=== PATIENT | female | born 1995 | race Caucasian/White ===

== ENCOUNTER 2024-08-29 17:30 | Emergency (ER) | payer MEDICAID, SELFPAY ==
[2024-08-29 17:51] VITALS: BP 137/86; PULSE 94; RESP 18; TEMP 36.7; O2SAT 100; BMI 20.7
--- NOTE | 2024-08-29 18:07 | PD.EDRME ---
Rapid Medical Screening Exam RME Arrival date/time: 08/29/24 17:30 28-year-old female presents to the emergency department complaints of back pain and discolored urine Chief Complaint: Urogenital-Female Time Seen by Provider: 08/29/24 17:32 Vital signs: Vital Signs Temperature 98.0 F 08/29/24 17:51 Pulse Rate 94 08/29/24 17:51 Respiratory Rate 18 08/29/24 17:51 Blood Pressure 137/86 H 08/29/24 17:51 Pulse Oximetry (%) 100 08/29/24 17:51 Oxygen Delivery Method Room Air 08/29/24 17:51
[2024-08-29 18:54] LABS: Collection Type, Urine Clean Catch
[2024-08-29 19:07] LABS: Basophils % (Auto) 0 % (0-2.5); Eosinophils # (Auto) 0.3 Thou/mm3 (0.0-0.5); Eosinophils % (Auto) 3 % (0-10); Hematocrit 44.4 % (36.0-46.0); Hemoglobin 14.8 g/dL (12.0-16.0); Immature Granulocytes % (Auto) 0 % (0-0); Immature Granulocytes Auto 0.03 Thou/mm3 (0.00-0.00); Lymphocytes # (Auto) 3.4 Thou/mm3 (1.0-4.8); Lymphocytes % (Auto) 30 % (10-50); Mean Corpuscular HGB Conc 33.3 g/dl (31.0-37.0); Mean Corpuscular Hemoglobin 30.7 pg (25.0-35.0); Mean Corpuscular Volume 92 fL (80-100); Monocytes # (Auto) 0.8 Thou/mm3 (0.0-0.8); Monocytes % (Auto) 7 % (0-12); Neutrophils # (Auto) 6.7 Thou/mm3 (1.8-7.7); Neutrophils % (Auto) 60 % (37-80); Nucleated Red Blood Cell % 0 /100 WBC (0); Platelet Count 337 Thou/mm3 (140-440); RDW Standard Deviation 43.6 fL (36.4-46.3); Red Blood Count 4.82 Miln/mm3 (4.00-5.20); White Blood Count 11.2 Thou/mm3 (3.6-11.0)
[2024-08-29 19:21] LABS: Alanine Aminotransferase 27 U/L (10-49); Albumin/Globulin Ratio 1.9 (1.2-2.2); Alkaline Phosphatase 83 U/L (46-116); Anion Gap 8 (7-16); Aspartate Amino Transferase 25 U/L (0-34); BUN/Creatinine Ratio 9 Ratio (12-20); Bilirubin,Total 0.4 mg/dL (0.3-1.2); Blood Urea Nitrogen 8 mg/dL (9-23); Calcium 10.4 mg/dL (8.3-10.6); Calcium (Corrected) 10.4 mg/dL (8.5-10.1); Carbon Dioxide 28.2 mMol/L (20.0-31.0); Chloride 102 mMol/L (98-107); Creatinine (Component) 0.9 mg/dL (0.6-1.3); Estimated Creatinine Clearance 79.6 mL/min (>60); Globulin 2.6 gm/dL (2.3-3.5); Glucose 92 mg/dL (74-106); Lipase 89 U/L (12-53); Osmolality,Calculated 273 (275-295); Potassium 4.2 mMol/L (3.4-5.1); Sodium 138 mMol/L (136-145); Total Protein 7.6 gm/dL (5.7-8.2); eGFR > 60 See Note
[2024-08-29 19:23] LABS: Amphetamine/Methamp Scrn,U Positive (Negative); Barbiturate Screen,Urine Negative (Negative); Benzodiazepines Screen,Urine Negative (Negative); Benzoylecgonine Screen, Ur Negative (Negative); Fentanyl Screen,Urine Negative (Negative); Opiate Screen,Urine Negative (Negative); THC Screen,Urine Negative (Negative)
[2024-08-29 19:25] LABS: Bilirubin,Urine Negative (Negative); Blood,Urine Negative (Negative); Clarity,Urine Turbid (Clear/Hazy); Color,Urine Yellow (Lt Yel-Yel); Glucose, Urine Negative (Negative); Hyaline Casts,Urine < 1 /hpf (0-1); Ketones,Urine Negative (Negative); Leukocyte Esterase,Urine Positive (Negative); Nitrite,Urine Positive (Negative); Protein,Urine 1+ (Neg - Trace); RBC,Urine 8 /hpf (0-3); Specific Gravity,Urine 1.029 (1.001-1.035); Squamous Epithelial Cell,Urine 3 /hpf (0-5); WBC,Urine 30 /hpf (0-5)
[2024-08-29 19:27] LABS: Culture Indicated,Urine Yes; HCG Qualitative,Urine Negative
[2024-08-29] MEDS: cefTRIAXone 1,000 MG, LIDOCAINE 1% 20 ML 2.1 ML IM (20:27)
--- NOTE | 2024-08-29 20:36 | EDNOTE_ITS ---
ED Female Urogenital RME/HPI General Chief complaint: Urogenital-Female Stated complaint: ABRONE, brown urine, lower back pain Time Seen by Provider: 08/29/24 17:32 Arrival date/time: 08/29/24 17:30 RME / HPI RME / HPI Narrative: 28-year-old female presents to the emergency department complaints of back pain and discolored urine. It has been going on for several days. Denies any vomiting denies any fever denies any dysuria or frequency. No medication was taken prior to arrival. Related Data Previous Rx's ?Medication ?Instructions ?Recorded ibuprofen 600 mg tablet 600 mg PO Q8H PRN pain #30 tabs 12/26/21 albuterol sulfate 90 mcg/actuation 2 inh inhalation QID PRN shortness 08/25/22 breath activated powder of breath #1 ea inhaler,sensor (Proair Digihaler) promethazine 6.25 mg/5 mL oral 12.5 mg (10 mL) PO Q6H PRN cough 08/25/22 syrup #473 mL lidocaine HCl 2 % mucosal jelly 1 applic topical QID PRN pain #50 09/29/22 mL ibuprofen 600 mg tablet 600 mg PO Q8H PRN pain #30 tabs 12/04/22 ibuprofen 600 mg tablet 600 mg PO TID PRN pain #30 tabs 04/26/23 ibuprofen 600 mg tablet 600 mg PO TID PRN pain #30 tabs 03/05/24 cefuroxime axetil 500 mg tablet 500 mg PO BID #14 tabs 08/29/24 Allergies Allergy/AdvReac Type Severity Reaction Status Date / Time No Known Allergies Allergy Verified 08/25/22 19:09 Review of Systems Review of Systems Narrative Review of Systems: Review of system reviewed and within normal limits except mentioned in HPI ED Exam Narrative Physical exam: VITAL SIGNS: Reviewed. GENERAL APPEARANCE: Alert and interactive, follows commands, no acute distress, HEAD AND FACE: Non-traumatic. ENT: PERRL, pink conjunctivitis, eyelid no trauma, Mucous membrane moist. NECK: Supple, nontender, no nuchal rigidity. CHEST: No tenderness, no crepitus, no paradoxical movement, no retractions. LUNGS: Clear, well ventilated, symmetric, no rales, no wheezing, no ronchi, no stridor, good breath sounds bilaterally. HEART: Regular rate, regular rhythm, no murmur, no gallops. ABDOMEN: Soft, positive bowel sounds, nondistended, no guarding, nontender, no rebound, no masses, RECTAL: Deferred. GENITAL: Deferred. NEUROLOGICAL: Gross motor function intact sensory function intact, Appropriate for age. MUSCULOSKELETAL: low back nontender, full range of motion. EXTREMITIES: Nontender, full range of motion. SKIN: Color pink, dry, no rash, no lacerations, no abrasions, no contusions. LYMPHATICS: Deferred. Course Quality Measures none Orders Category Date Time Status CBC Stat Lab 08/29/24 18:52 Completed Comprehensive Metabolic Panel Stat Lab 08/29/24 18:52 Completed Drug Screen,Urine Stat Lab 08/29/24 18:42 Completed HCG Qualitative,Urine Stat Lab 08/29/24 18:42 Completed Lipase Stat Lab 08/29/24 18:52 Completed UA, C/S IF [Urinalysis, C/S if Indicated] Stat Lab 08/29/24 18:42 Completed Urine Culture Stat Lab 08/29/24 18:42 Received cefTRIAXone [Rocephin] 1,000 mg Med 08/29/24 20:01 Discontinued Lidocaine 1% 20 ml [Xylocaine 1% 20 ML] 2.1 ml IM X1 Vital Signs Vital signs: Vital Signs Temperature 98.0 F 08/29/24 17:51 Pulse Rate 94 08/29/24 17:51 Respiratory Rate 18 08/29/24 17:51 Blood Pressure 137/86 H 08/29/24 17:51 Pulse Oximetry (%) 100 08/29/24 17:51 Oxygen Delivery Method Room Air 08/29/24 17:51 Urogenital - Female MDM Narrative MDM Narrative:: 28-year-old female presents to the emergency department complaints of back pain and discolored urine. It has been going on for several days. Denies any vomiting denies any fever denies any dysuria or frequency. No medication was taken prior to arrival. Urinalysis positive for UTI. Tested positive for methamphetamine. CBC showed slight leukocytosis 12.2 otherwise unremarkable. Creatinine is normal patient was counseled about stopping abusing methamphetamine. Patient told me that she will try to stop it. Patient receives ceftriaxone IM for UTI. Patient data External records reviewed:: None Clinical information provided by:: none Social determinants that could affect healthcare access:: none Patient has the following chronic illnesses:: None How is presenting disease/condition affected by chronic disease/condition?: no chronic disease Evaluation data The following diagnostics were reviewed and interpreted by me:: lab results and radiology exam(s) Lab and/or radiology exams considered but not ordered:: None Interpretation Summary: Urinalysis positive for UTI. Rest of the labs unremarkable. Medications / Prescriptions Medications or Prescriptions considered but not ordered:: None Medication administrations:: Medication Administration History Discontinued Medications Ceftriaxone Sodium 1,000 mg/ (Lidocaine HCl 2.1 ml) 0 mg IM X1 ONE Stop: 08/29/24 20:02 Last Admin: 08/29/24 20:27 Dose: 1,000 mg Documented By: Ceftriaxone IM Consultations Consultation(s) initiated? (list below): No Consultation #1 (Physician, Specialty, Details): None Diagnosis Urogenital Female Differential Diagnosis: urinary tract infection, cystitis and other (Hematuria) Most likely diagnosis given after review of the tests above:: UTI Admission Indicated Admission indicated?: not indicated Admission Request Was there a request for admission?: No Disposition Plan Disposition Plan: Discharge Discharge Attestation Discharge Attestation: The patient was given an opportunity to ask questions and understood the discharge instructions. Discharge instructions specifically effects, indications for sooner follow up or return to the emergency department, and the expected course of current diagnosis. Patient condition: Stable Discharge Plan Plan Patient Disposition: HOME (Self Care) Disposition Comment: stable Prescriptions/Referrals Prescriptions/Med Rec: New cefuroxime axetil 500 mg tablet 500 mg PO BID Qty: 14 0RF No Action ibuprofen 600 mg tablet 600 mg PO Q8H PRN (Reason: pain) Qty: 30 0RF lidocaine HCl 2 % jelly 1 applic topical QID PRN (Reason: pain) Qty: 50 0RF ibuprofen 600 mg tablet 600 mg PO TID PRN (Reason: pain) Qty: 30 0RF Proair Digihaler 90 mcg/actuation aero powdr breath act w/sensor 2 inh inhalation QID PRN (Reason: shortness of breath) Qty: 1 0RF promethazine 6.25 mg/5 mL syrup 12.5 mg PO Q6H PRN (Reason: cough) Qty: 473 0RF ibuprofen 600 mg tablet 600 mg PO Q8H PRN (Reason: pain) Qty: 30 0RF ibuprofen 600 mg tablet 600 mg PO TID PRN (Reason: pain) Qty: 30 0RF Referrals: Caio Pena MD [Primary Care Provider] - In 1 week Problem List Clinical Impression: Urinary tract infection Patient/Caregiver Discharge Instructions Discharge Activity: activity as tolerated Education Materials: Understanding Urinary Tract ... Additional Instructions: Thank you for the opportunity for serving you today. You are stable for discharged . You are advised to: Follow-up with your PCP in 1 to 2 days Return to ED for worsening of symptoms Increase oral fluids Take medication as prescribed Please try to stop abusing meth Print Language: Amharic Stand Alone Forms: Shantelle Award Info., Patient Portal Info Letter PA/HEALTH SAFETY SPECIALIST Supervising Physician PA/HEALTH SAFETY SPECIALIST Supervising Physician: MD Jena
== END 2024-08-29 20:44 | disposition home or self-care (01) ==
PROVIDERS: Nurse Practitioner Primary Care; Emergency Provider Emergency Medicine; PCP Family Medicine
DX: N39.0 Urinary tract infection, site not specified (principal)
CPT/HCPCS: 36415; 80053; 80307; 81001; 81025; 83690; 85025; 87077; 87086; 87186; 96372; 99283; J0696; J3490

== ENCOUNTER 2024-10-02 23:43 | Emergency (ER) | payer MEDICAID, SELFPAY ==
[2024-10-03 00:02] VITALS: BP 115/82; PULSE 108; RESP 20; TEMP 36.6; O2SAT 97
--- NOTE | 2024-10-03 00:05 | EDNOTE_ITS ---
ED Ear RME/HPI General Chief complaint: Ear Stated complaint: Bilateral ear pain x 2 days with fever Time Seen by Provider: 10/02/24 23:48 Source: patient, RN notes reviewed and old records reviewed Arrival date/time: 10/02/24 23:43 Mode of arrival: ambulatory Limitations: no limitations RME / HPI RME / HPI Narrative: 28yof presents to ED for 2-day history of subjective fever and left ear pain, now with ear drainage tonight. Patient reports mild right ear pain as well. Recent nasal congestion in the past week. No sore throat, nausea/vomiting, headache or dizziness reported. No medications or treatments since symptom onset Related Data Previous Rx's ?Medication ?Instructions ?Recorded ibuprofen 600 mg tablet 600 mg PO Q8H PRN pain #30 tabs 12/26/21 albuterol sulfate 90 mcg/actuation 2 inh inhalation QID PRN shortness 08/25/22 breath activated powder of breath #1 ea inhaler,sensor (Proair Digihaler) promethazine 6.25 mg/5 mL oral 12.5 mg (10 mL) PO Q6H PRN cough 08/25/22 syrup #473 mL lidocaine HCl 2 % mucosal jelly 1 applic topical QID PRN pain #50 09/29/22 mL ibuprofen 600 mg tablet 600 mg PO Q8H PRN pain #30 tabs 12/04/22 ibuprofen 600 mg tablet 600 mg PO TID PRN pain #30 tabs 04/26/23 ibuprofen 600 mg tablet 600 mg PO TID PRN pain #30 tabs 03/05/24 cefuroxime axetil 500 mg tablet 500 mg PO BID #14 tabs 08/29/24 amoxicillin 875 mg-potassium 1 tab PO BID 10 days #20 tabs 10/03/24 clavulanate 125 mg tablet ibuprofen 600 mg tablet 600 mg PO Q6H PRN pain #30 tabs 10/03/24 Allergies Allergy/AdvReac Type Severity Reaction Status Date / Time No Known Allergies Allergy Verified 08/25/22 19:09 Review of Systems Review of Systems Systems Reviewed: All systems reviewed, normal except as documented Constitutional Constitutional: Reports chills, Reports fever(s) and Reports headache(s) ENT Ears, Nose, Mouth, and Throat: Reports ear discharge, Reports otalgia, Reports headache(s), Reports nasal congestion and Denies sore throat Respiratory Respiratory: Denies cough Gastrointestinal Gastrointestinal: Denies nausea and Denies vomiting Neurologic Neurologic: Reports headache(s) Past Medical History Past Medical History REPRODUCTIVE: Positive Pelvic Inflammatory Disease and Previous Pregnancies (d/c at 6 weeks) Surgical History SURGICAL: Positive Ear Surgery and Tonsillectomy OTHER SURGICAL HX: D&C Social History SMOKING STATUS: Light (< 1 pack/day) SUBSTANCE USE: does not use ED Exam General Limitations: Present no limitations General appearance: Present alert and in no apparent distress Head Head exam: Present atraumatic and normocephalic Eye Eye exam: Present normal appearance, PERRL and EOMI ENT ENT exam: Present normal oropharynx, mucous membranes moist and other (Left TM erythema with small perf. Purulence in left EAC. Mild UAC.) Neck Neck exam: Present normal inspection and full ROM Chest Chest inspection: Present normal inspection and symmetric chest wall rise Respiratory Respiratory exam: Present normal lung sounds bilaterally; Absent respiratory distress Cardiovascular Cardiovascular exam: Present normal rhythm and tachycardia (Mild, HR 108) Extremities Exam Extremities exam: Present normal inspection and full ROM Neurological Exam Neurological exam: Present alert and oriented X3 Psychiatric Psychiatric exam: Present normal affect and normal mood Skin Skin exam: Present warm, dry, intact and normal color Course Quality Measures none Orders Category Date Time Status Acetaminophen Tab [Tylenol ES Tab] Med 10/03/24 00:11 Discontinued 1,000 mg PO X1 ONE Vital Signs Vital signs: Vital Signs Temperature 97.9 F 10/03/24 00:02 Pulse Rate 108 H 10/03/24 00:02 Respiratory Rate 20 10/03/24 00:02 Blood Pressure 115/82 10/03/24 00:02 Pulse Oximetry (%) 97 10/03/24 00:02 Oxygen Delivery Method Room Air 10/03/24 00:02 Ear MDM Narrative MDM Narrative:: 28yof presents to ED for 2-day history of subjective fever and left ear pain, now with ear drainage tonight. Patient reports mild right ear pain as well. Recent nasal congestion in the past week. No sore throat, nausea/vomiting, headache or dizziness reported. No medications or treatments since symptom onset Exam findings consistent with otitis media with TM perforation. Patient is nontoxic-appearing, afebrile, vitals are stable. No evidence of mastoiditis. Recommended Motrin/Tylenol prn pain. Stable for discharge, RTED precautions given Patient data External records reviewed:: [facility] previous records (08/29/2024 ED visit for UTI) Clinical information provided by:: patient Social determinants that could affect healthcare access:: other (specify) (Poor access to healthcare, unemployed) Patient has the following chronic illnesses:: None How is presenting disease/condition affected by chronic disease/condition?: no chronic disease Evaluation data The following diagnostics were reviewed and interpreted by me:: other (specify) Lab and/or radiology exams considered but not ordered:: None Interpretation Summary: na Medications / Prescriptions Medications or Prescriptions considered but not ordered:: None Medication administrations:: Medication Administration History Discontinued Medications Acetaminophen (Acetaminophen 500 Mg Tablet) 1,000 mg PO X1 ONE Stop: 10/03/24 00:12 Last Admin: 10/03/24 00:29 Dose: 1,000 mg Documented By: na Consultations Consultation(s) initiated? (list below): No Diagnosis Ear Differential Diagnosis: otitis externa, otitis media, foreign body in ear, ruptured TM and cerumen impaction Most likely diagnosis given after review of the tests above:: Otitis media with TM perforation Admission Indicated Admission indicated?: not indicated Admission Request Was there a request for admission?: No Disposition Plan Disposition Plan: Discharge Discharge Attestation Discharge Attestation: The patient and all family members were given an opportunity to ask questions and understood the discharge instructions. Discharge instructions specifically effects, indications for sooner follow up or return to the emergency department, and the expected course of current diagnosis. Patient condition: Stable Discharge Plan Plan Patient Disposition: HOME (Self Care) Patient condition on transfer: Stable Prescriptions/Referrals Prescriptions/Med Rec: New amoxicillin-pot clavulanate 875-125 mg tablet 1 tab PO BID 10 Days Qty: 20 0RF ibuprofen 600 mg tablet 600 mg PO Q6H PRN (Reason: pain) Qty: 30 0RF No Action ibuprofen 600 mg tablet 600 mg PO Q8H PRN (Reason: pain) Qty: 30 0RF lidocaine HCl 2 % jelly 1 applic topical QID PRN (Reason: pain) Qty: 50 0RF ibuprofen 600 mg tablet 600 mg PO TID PRN (Reason: pain) Qty: 30 0RF cefuroxime axetil 500 mg tablet 500 mg PO BID Qty: 14 0RF Proair Digihaler 90 mcg/actuation aero powdr breath act w/sensor 2 inh inhalation QID PRN (Reason: shortness of breath) Qty: 1 0RF promethazine 6.25 mg/5 mL syrup 12.5 mg PO Q6H PRN (Reason: cough) Qty: 473 0RF ibuprofen 600 mg tablet 600 mg PO Q8H PRN (Reason: pain) Qty: 30 0RF ibuprofen 600 mg tablet 600 mg PO TID PRN (Reason: pain) Qty: 30 0RF Problem List Clinical Impression: Acute suppur left otitis media w/spontan rupture of tympanic membrane, Otalgia, left ear Patient/Caregiver Discharge Instructions Education Materials: ED Otitis Media Antibiotic ... Additional Instructions: Alternate ibuprofen and Tylenol every 4-6 hours as needed for pain Print Language: Sinhala Stand Alone Forms: Shantelle Award Info., Patient Portal Info Letter PA/RENTAL CLERK Supervising Physician PA/RENTAL CLERK Supervising Physician: Jas
[2024-10-03] MEDS: ACETAMINOPHEN 500 MG TABLET 1000 MG PO (00:29)
== END 2024-10-03 00:38 | disposition home or self-care (01) ==
LOC: SERX 10-03 00:36
PROVIDERS: Emergency Provider Emergency Medicine; PCP Family Medicine
DX: H66.012 Acute suppurative otitis media with spontaneous rupture of ear drum, left ear (principal); H92.01 Otalgia, right ear
CPT/HCPCS: 99282; A9270

== ENCOUNTER 2025-06-17 00:47 | Emergency (ER) | payer MEDICAID, SELFPAY ==
[2025-06-17 00:48] VITALS: BP 123/76; PULSE 90; TEMP 36.6; O2SAT 98
--- NOTE | 2025-06-17 01:40 | PD.EDRME ---
Rapid Medical Screening Exam RME Arrival date/time: 06/17/25 00:47 Chief Complaint: General Adult/Misc Complain Time Seen by Provider: 06/17/25 00:57 Vital signs: Vital Signs Temperature 97.8 F 06/17/25 00:48 Pulse Rate 90 06/17/25 00:48 Blood Pressure 123/76 06/17/25 00:48 Pulse Oximetry (%) 98 06/17/25 00:48 Oxygen Delivery Method Room Air 06/17/25 00:48 RME Narrative: Right labial redness, swelling, pain x 3-4 days. Also reports constipation x2 weeks
[2025-06-17 02:12] LABS: Basophils # (Auto) 0.0 Thou/mm3 (0.0-0.2); Basophils % (Auto) 0 % (0-2.5); Eosinophils # (Auto) 0.4 Thou/mm3 (0.0-0.5); Eosinophils % (Auto) 3 % (0-10); Hematocrit 37.3 % (36.0-46.0); Hemoglobin 12.4 g/dL (12.0-16.0); Immature Granulocytes Auto 0.04 Thou/mm3 (0.00-0.00); Lymphocytes # (Auto) 3.2 Thou/mm3 (1.0-4.8); Lymphocytes % (Auto) 22 % (10-50); Mean Corpuscular HGB Conc 33.2 g/dl (31.0-37.0); Mean Corpuscular Hemoglobin 30.4 pg (25.0-35.0); Mean Corpuscular Volume 91 fL (80-100); Monocytes # (Auto) 1.5 Thou/mm3 (0.0-0.8); Monocytes % (Auto) 10 % (0-12); Neutrophils # (Auto) 9.1 Thou/mm3 (1.8-7.7); Neutrophils % (Auto) 64 % (37-80); Nucleated Red Blood Cell # 0.00 Thou/mm3 (0.00-0.00); Nucleated Red Blood Cell % 0 /100 WBC (0); Platelet Count 315 Thou/mm3 (140-440); RDW Standard Deviation 42.0 fL (36.4-46.3); Red Blood Count 4.08 Miln/mm3 (4.00-5.20); White Blood Count 14.2 Thou/mm3 (3.6-11.0)
[2025-06-17 02:30] LABS: Alanine Aminotransferase 15 U/L (10-49); Albumin, Serum 4.4 gm/dL (3.5-5.0); Albumin/Globulin Ratio 1.9 (1.2-2.2); Alkaline Phosphatase 77 U/L (46-116); Anion Gap 7 (7-16); Aspartate Amino Transferase 17 U/L (0-34); BUN/Creatinine Ratio 11 Ratio (12-20); Bilirubin,Total 0.3 mg/dL (0.3-1.2); Blood Urea Nitrogen 11 mg/dL (9-23); Calcium 9.9 mg/dL (8.3-10.6); Calcium (Corrected) 9.9 mg/dL (8.5-10.1); Carbon Dioxide 28.2 mMol/L (20.0-31.0); Chloride 105 mMol/L (98-107); Creatinine (Component) 1.0 mg/dL (0.6-1.3); Globulin 2.3 gm/dL (2.3-3.5); Glucose 90 mg/dL (74-106); Osmolality,Calculated 278 (275-295); Potassium 3.9 mMol/L (3.4-5.1); Sodium 140 mMol/L (136-145); Total Protein 6.7 gm/dL (5.7-8.2); eGFR > 60 See Note
[2025-06-17 02:52] LABS: Collection Type, Urine Clean Catch
[2025-06-17 02:58] LABS: HCG Qualitative,Urine Negative
[2025-06-17 03:04] LABS: Bacteria,Urine Rare; Bilirubin,Urine Negative (Negative); Blood,Urine Negative (Negative); Clarity,Urine Clear (Clear/Hazy); Color,Urine Yellow (Lt Yel-Yel); Glucose, Urine Negative (Negative); Ketones,Urine Negative (Negative); Leukocyte Esterase,Urine Positive (Negative); Nitrite,Urine Negative (Negative); PH,Urine 6.0 (5.0-7.0); Protein,Urine 1+ (Neg - Trace); RBC,Urine 8 /hpf (0-3); Specific Gravity,Urine 1.039 (1.001-1.035); Squamous Epithelial Cell,Urine 2 /hpf (0-5); Urobilinogen,Urine 3.0 mg/dL (0.0-1.0); WBC,Urine 24 /hpf (0-5)
[2025-06-17 03:35] VITALS: BP 116/76; PULSE 87; RESP 18; TEMP 36.6; O2SAT 100
--- NOTE | 2025-06-17 03:48 | PD.EDFMALE ---
ED Female Urogenital RME/HPI General Chief complaint: General Adult/Misc Complain Stated complaint: NO BM X 14 DAYS Time Seen by Provider: 06/17/25 00:57 Arrival date/time: 06/17/25 00:47 RME / HPI RME / HPI Narrative: Right labial redness, swelling, pain x 3-4 days. Also reports constipation x2 weeks DR. BATES MAIN ED EVALUATION: 29 y/o female with Hx of PID presents to ED c/o increased redness, pain, and swelling to the right labia majora x 5 days. Patient felt a growing and moving mass to the labia 3 days ago with worsening pain. Patient has not experienced these symptoms in the past. Related Data Previous Rx's ?Medication ?Instructions ?Recorded ibuprofen 600 mg tablet 600 mg PO Q8H PRN pain #30 tabs 12/26/21 albuterol sulfate 90 mcg/actuation 2 inh inhalation QID PRN shortness 08/25/22 breath activated powder of breath #1 ea inhaler,sensor (Proair Digihaler) promethazine 6.25 mg/5 mL oral 12.5 mg (10 mL) PO Q6H PRN cough 08/25/22 syrup #473 mL lidocaine HCl 2 % mucosal jelly 1 applic topical QID PRN pain #50 09/29/22 mL ibuprofen 600 mg tablet 600 mg PO Q8H PRN pain #30 tabs 12/04/22 ibuprofen 600 mg tablet 600 mg PO TID PRN pain #30 tabs 04/26/23 ibuprofen 600 mg tablet 600 mg PO TID PRN pain #30 tabs 03/05/24 cefuroxime axetil 500 mg tablet 500 mg PO BID #14 tabs 08/29/24 ibuprofen 600 mg tablet 600 mg PO Q6H PRN pain #30 tabs 10/03/24 clindamycin HCl 300 mg capsule 300 mg PO Q6H #28 caps 06/17/25 Allergies Allergy/AdvReac Type Severity Reaction Status Date / Time No Known Allergies Allergy Verified 06/17/25 00:48 Review of Systems Review of Systems Systems Reviewed: All systems reviewed, normal except as documented Past Medical History Past Medical History REPRODUCTIVE: Positive Pelvic Inflammatory Disease and Previous Pregnancies Family History FAMILY HISTORY: Positive Family Cancer (colon cancer) Surgical History SURGICAL: Positive Ear Surgery Social History SMOKING STATUS: Current every day smoker ED Exam Narrative Physical exam: Generally patient is alert no obvious distress, heart is a regular rate and rhythm, lungs clear to auscultation equal bilaterally, abdomen soft bowel sounds present nondistended nontender, genital exam done with nurse application architect manager shows enlargement to the inferior portion of the right labia majora with induration and mild overlying erythema without open wound Course Quality Measures none Orders Category Date Time Status CT Screening NOW Care 06/17/25 01:41 Active IV [Insert IV] NOW Care 06/17/25 03:13 Active Incision and Drainage Set Up X1 Care 06/17/25 03:49 Active CBC Stat Lab 06/17/25 01:50 Completed CMP [Comprehensive Metabolic Panel] Stat Lab 06/17/25 01:50 Completed HCG Qualitative,Urine Stat Lab 06/17/25 02:37 Completed UA [Urinalysis] Stat Lab 06/17/25 02:37 Completed Ketorolac Inj [Toradol Inj] Med 06/17/25 03:48 Discontinued 30 mg IVP X1 ONE Vital Signs Vital signs: Vital Signs Temperature 97.8 F 06/17/25 00:48 Pulse Rate 90 06/17/25 00:48 Blood Pressure 123/76 06/17/25 00:48 Pulse Oximetry (%) 98 06/17/25 00:48 Oxygen Delivery Method Room Air 06/17/25 00:48 Urogenital - Female MDM Narrative MDM Narrative:: Scribe Attestation: Yamileth Lopez am scribing for and in the presence of Dr. Bates. Provider Notation: Although this document has been carefully reviewed, there may still be some phonetic and other typographical errors. These errors are purely grammatical due to imperfections in the software program and should not be construed in any way to compromise the substance of the patient's medical care during this visit. An incision and drainage to the right labia majora was carried out here in the emergency room for this Bartolonian abscess. The indurated region was cleansed using chlorhexidine and anesthetized with 1% lidocaine without epinephrine. Using 11 blade scalpel a stab incision was introduced measuring approximately 1 cm in size. There was blood and exudate in return. Loculations were broken up using blunt dissection. The wound was then packed with 1/4 inch iodoform gauze. Here in the emergency room the patient did receive Toradol 30 mg IV. Patient is to take the clindamycin as prescribed. Sit in warm clean bath water twice a day for the next 3 days. She was told that the packing will fall out while taking the bath. If it does not she must return in 3 days for packing removal. Patient data External records reviewed:: [facility] previous records (Reviewed prior ED records from 10/03/24. Patient was seen for Acute suppur left otitis media w/spontan rupture of tympanic membrane.) Clinical information provided by:: patient Social determinants that could affect healthcare access:: none Patient has the following chronic illnesses:: PID How is presenting disease/condition affected by chronic disease/condition?: uneffected by Evaluation data The following diagnostics were reviewed and interpreted by me:: lab results Lab and/or radiology exams considered but not ordered:: None Interpretation Summary: See MDM above Medications / Prescriptions Medications or Prescriptions considered but not ordered:: None Medication administrations:: Medication Administration History Discontinued Medications Ketorolac Tromethamine (Ketorolac Inj 30 Mg/Ml Vial) 30 mg IVP X1 ONE Stop: 06/17/25 03:49 Last Admin: 06/17/25 04:13 Dose: 30 mg Documented By: BECCA See above if any Consultations Consultation(s) initiated? (list below): No Diagnosis Urogenital Female Differential Diagnosis: bacterial vaginosis, trichomoniasis, vaginitis and cyst of Bartholin's gland Most likely diagnosis given after review of the tests above:: none Admission Indicated Admission indicated?: not indicated Explain why admission is indicated or not indicated:: Patient does not meet admission criteria Admission Request Was there a request for admission?: No Disposition Plan Disposition Plan: Discharge Discharge Attestation Discharge Attestation: The patient and all family members were given an opportunity to ask questions and understood the discharge instructions. Discharge instructions specifically effects, indications for sooner follow up or return to the emergency department, and the expected course of current diagnosis. Patient condition: Stable Discharge Plan Plan Patient Disposition: HOME (Self Care) Prescriptions/Referrals Prescriptions/Med Rec: New clindamycin HCl 300 mg capsule 300 mg PO Q6H Qty: 28 0RF No Action ibuprofen 600 mg tablet 600 mg PO Q8H PRN (Reason: pain) Qty: 30 0RF lidocaine HCl 2 % jelly 1 applic topical QID PRN (Reason: pain) Qty: 50 0RF ibuprofen 600 mg tablet 600 mg PO TID PRN (Reason: pain) Qty: 30 0RF cefuroxime axetil 500 mg tablet 500 mg PO BID Qty: 14 0RF ibuprofen 600 mg tablet 600 mg PO Q6H PRN (Reason: pain) Qty: 30 0RF Proair Digihaler 90 mcg/actuation aero powdr breath act w/sensor 2 inh inhalation QID PRN (Reason: shortness of breath) Qty: 1 0RF promethazine 6.25 mg/5 mL syrup 12.5 mg PO Q6H PRN (Reason: cough) Qty: 473 0RF ibuprofen 600 mg tablet 600 mg PO Q8H PRN (Reason: pain) Qty: 30 0RF ibuprofen 600 mg tablet 600 mg PO TID PRN (Reason: pain) Qty: 30 0RF Referrals: No Primary/Family,Physician [Primary Care Provider] - In 1 week Problem List Clinical Impression: Abscess of Bartholin gland Patient/Caregiver Discharge Instructions Print Language: Croatian Stand Alone Forms: Shantelle Award Info., Patient Portal Info Letter
[2025-06-17] MEDS: KETOROLAC INJ 30 MG/ML VIAL IVP (04:13)
== END 2025-06-17 04:48 | disposition home or self-care (01) ==
PROVIDERS: Physician Assistant; Emergency Provider Emergency Medicine
DX: N75.1 Abscess of Bartholin's gland (principal)
CPT/HCPCS: 56420; 36415; 80053; 81001; 81025; 85025; 96374; 99284; J1885